=== PATIENT | male | born 1985 | race American Indian/Alaskan Native ===

== ENCOUNTER 2019-02-16 12:25 | Emergency (ER) | payer SELFPAY ==
[2019-02-16 13:09] VITALS: BP 114/61
[2019-02-16] MEDS ORDERED: LIDOCAINE-MPF (1%) 10 MG/1 ML VIAL 5 ML INFILTRATI ONE (13:42)
[2019-02-16] MEDS ORDERED: AZITHROMYCIN 1 GM ORAL PWDR PACKET PO ONE (13:42)
[2019-02-16] MEDS ORDERED: ONDANSETRON 4 MG ODT TAB PO ONE (13:42)
[2019-02-16] MEDS ORDERED: metroNIDAZOLE 500 MG TAB PO ONE (13:43)
--- NOTE | 2019-02-16 13:47 | Emergency Department Report ---
ED Male HPI - General Chief complaint: Urogenital-Male Stated complaint: CHECK UP/POSS STD/DISCHARGE Time Seen by Provider: 02/16/19 13:10 Source: patient Mode of arrival: Ambulatory Limitations: No Limitations - History of Present Illness Initial comments: Mr. Magdaleno is a very pleasant healthy 33-year-old male without significant past medical history who presents with penile discharge and dysuria for the past 3 days. He has had unprotected intercourse recently. Unknown if he's had exposure to STD. He has white penile discharge. Denies abdominal pain. He has been unable to contact his sexual partner. MD Complaint: penile discharge, dysuria -: Gradual, days(s) (3) Location: penis Radiation: none Severity: mild Quality: burning Consistency: intermittent Worsens with: urination discharge - Related Data Sexually active: Yes Allergies Allergy/AdvReac Type Severity Reaction Status Date / Time molasses Allergy Swelling Verified 02/16/19 13:07 ED Review of Systems ROS: Stated complaint: CHECK UP/POSS STD/DISCHARGE Other details as noted in HPI Constitutional: denies: fever, malaise Gastrointestinal: denies: abdominal pain Genitourinary: dysuria, discharge. denies: urgency Musculoskeletal: denies: back pain Skin: denies: rash, lesions ED Past Medical Hx - Past Medical History Previous Medical History?: No - Surgical History Past Surgical History?: No - Social History Smoking Status: Current Every Day Smoker Substance Use Type: Alcohol, Marijuana ED Physical Exam - General Limitations: No Limitations General appearance: alert, in no apparent distress - Head Head exam: Present: atraumatic, normocephalic - Eye Eye exam: Present: normal appearance - ENT ENT exam: Present: mucous membranes moist - Neck Neck exam: Present: normal inspection - Respiratory Respiratory exam: Present: normal lung sounds bilaterally. Absent: respiratory distress, wheezes, rales - Cardiovascular Cardiovascular Exam: Present: regular rate, normal rhythm - GI/Abdominal GI/Abdominal exam: Present: soft, normal bowel sounds. Absent: distended, tenderness, guarding, rebound - Rectal Rectal exam: Present: deferred - exam: Present: other (deferred) - Extremities Exam Extremities exam: Present: normal inspection - Back Exam Back exam: Present: normal inspection - Neurological Exam Neurological exam: Present: alert, oriented X3 - Psychiatric Psychiatric exam: Present: normal affect, normal mood - Skin Skin exam: Present: warm, dry, intact, normal color. Absent: rash ED Course Vital Signs 02/16/19 13:07 Temperature 97.9 F Pulse Rate 94 H Respiratory 18 Rate Blood Pressure 114/61 O2 Sat by Pulse 96 Oximetry ED Medical Decision Making - Medical Decision Making Mr. Magdaleno presents with s/s of urethritis. In the emergency department, he was treated for rhinorrhea, chlamydia and Trichomonas infection. I strongly encouraged HIV testing within the next 3 months. He is committed to barrier protection with sexual intercourse. Discharged home. Critical care attestation.: If time is entered above; I have spent that time in minutes in the direct care of this critically ill patient, excluding procedure time. ED Disposition Clinical Impression: Urethritis Disposition: DC-01 TO HOME OR SELFCARE Is pt being admited?: No Does the pt Need Aspirin: No Condition: Stable Instructions: Gonococcal Urethritis (ED), Nonspecific Urethritis in Men (ED), Sexually Transmitted Diseases (ED) Additional Instructions: Please perform Internet search for free HIV testing in the neighborhood. Please obtain HIV test within the next 3 months. Referrals: [facility] [Outside] - 3-5 Days Forms: STI Treatment and Prevention, Work/School Release Form(ED)
== END 2019-02-16 14:11 | disposition home or self-care (01) ==
LOC: ED 12:25
DX: N34.2 Other urethritis (principal); F17.200 Nicotine dependence, unspecified, uncomplicated; F12.10 Cannabis abuse, uncomplicated; Z91.09 Other allergy status, other than to drugs and biological substances
CPT/HCPCS: 96372; 99282; J0696; Q0162